=== PATIENT | female | born 2000 | race African-American/Black ===

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

== ENCOUNTER 2021-07-22 12:02 | Inpatient (IN) ==
[2021-07-22] MEDS ORDERED: Oxytocin in LR 20 UNITS/1,000 ML BAG IVPB ONE (13:23)
[2021-07-22] MEDS: Lactated Ringers 1000 ml BAG 1,000 ML IV SCH ×2 (13:35→20:42)
[2021-07-22] MEDS ORDERED: Lactated Ringers 1000 ml BAG 1,000 ML IV ONE ×2 (14:13→18:36)
[2021-07-22] MEDS ORDERED: Buffered Lidocaine 1% SYRIN 1 ml INTRADERM ONE (14:13)
[2021-07-22 14:35] LABS: ABS Basophils 0.1 10^3/ul (0-0.2); ABS Eosinophils 0.1 10^3/ul (0-0.6); ABS Monocytes 1.5 10^3/ul (0-0.8); ABS Neutrophils 9.8 10^3/ul (1.5-7.7); Hematocrit 37 % (35-47); Hemoglobin 12.2 g/dL (12.0-16.0); Mean Corpuscular HGB Conc 33 g/dL (31-36); Mean Corpuscular Hemoglobin 28 pg (27-31); Mean Corpuscular Volume 84 fL (80-97); Mean Platelet Volume 9.5 fL (7.4-10.4); Platelet Count 241 10^3/uL (150-450); Red Blood Count 4.39 10^6 /uL (3.70-4.87); Red Cell Distribution Width 19 % (10-15); White Blood Count 13.5 10^3/uL (3.5-10.8)
[2021-07-22] MEDS ORDERED: Oxytocin in LR 20 UNITS/1,000 ML BAG IVPB SCH (15:00)
[2021-07-22 15:16] LABS: Urine Benzodiazepine Screen None Detected (None Detect); Urine Cannabinoids Screen None Detected (None Detect); Urine Opiates Screen None Detected (None Detect)
[2021-07-22 15:26] LABS: Rapid COVID-19 Molecular Undetected (Undetected)
[2021-07-22] MEDS ORDERED: OBEPIDURAL 250 ML EPIDURAL ONE (17:37)
[2021-07-22] MEDS ORDERED: Phenylephrine 40 mcg/mL 10mL (400mcg) SYRINGE IV PUSH PRN ×2 (18:36)
[2021-07-22] MEDS ORDERED: Lactated Ringers 1000 ml BAG 500 ML IV PRN ×2 (18:36)
[2021-07-22] MEDS ORDERED: Sodium Citrate/Citric Acid LIQ 15 ML UDC PO PRN (18:36)
[2021-07-22] MEDS ORDERED: OBEPIDURAL 250 ML EPIDURAL SCH (19:00)
[2021-07-22] MEDS ORDERED: Lactated Ringers 1000 ml BAG 1,000 ML IV SCH (19:00)
[2021-07-22 19:01] LABS: Urine Appearance Cloudy; Urine Bilirubin Negative (Negative); Urine Blood Negative (Negative); Urine Color Yellow; Urine Glucose Negative (Negative); Urine Ketones 1+ (Negative); Urine Nitrite Negative (Negative); Urine Protein Negative (Negative); Urine Specific Gravity 1.016 (1.002-1.030); Urine Urobilinogen Negative (Negative)
[2021-07-23] MEDS ORDERED: Witch Hazel PAD JAR TOPICAL PRN (01:11)
[2021-07-23] MEDS ORDERED: Dibucaine 1% OINT 28.35 GM TUBE PR PRN (01:11)
[2021-07-23] MEDS ORDERED: Glycerin ADULT 2.4 gm SUPP PR PRN (01:11)
[2021-07-23] MEDS ORDERED: Lidocaine 1% VIAL 10 MG/ML VIAL ONE (03:40)
[2021-07-23] MEDS ORDERED: Tetan/Diph/Pertus SYR(Tdap) 0.5 ML SYR(BOOSTRIX) use SYR contains LATEX IM ONE (09:00)
[2021-07-24 06:30] LABS: ABS Basophils 0.1 10^3/ul (0-0.2); ABS Eosinophils 0.2 10^3/ul (0-0.6); ABS Lymphocytes 2.7 10^3/ul (1.0-4.8); ABS Monocytes 1.5 10^3/ul (0-0.8); ABS Neutrophils 11.7 10^3/ul (1.5-7.7); Eosinophil % 1.4 %; Hematocrit 30 % (35-47); Hemoglobin 9.7 g/dL (12.0-16.0); Lymphocyte % 16.8 %; Mean Corpuscular HGB Conc 32 g/dL (31-36); Mean Corpuscular Hemoglobin 27 pg (27-31); Mean Corpuscular Volume 84 fL (80-97); Mean Platelet Volume 8.6 fL (7.4-10.4); Nucleated Red Blood Cells % 0.1; Platelet Count 229 10^3/uL (150-450); Red Blood Count 3.56 10^6 /uL (3.70-4.87); Red Cell Distribution Width 19 % (10-15); White Blood Count 16.1 10^3/uL (3.5-10.8)
[2021-07-25 11:52] VITALS: BP 104/51
== END 2021-07-25 18:22 | disposition home or self-care (01) | DRG 560 ==
LOC: MCHOBOUT 12:02 → MCHOB 13:21
PROVIDERS: ADMIT Midwife; ATTEND Midwife

== ENCOUNTER 2023-11-10 10:35 | Inpatient (IN) ==
[2023-11-10] MEDS ORDERED: Lidocaine 1% VIAL 10 MG/ML 30 ML VIAL INJ PRN (10:52)
[2023-11-10] MEDS: Lactated Ringers 1000 ml BAG 1,000 ML IV ONE (11:07)
[2023-11-10 11:17] LABS: ABS Basophils 0.1 10^3/uL (0.0-0.1); ABS Eosinophils 0.1 10^3/uL (0.0-0.5); ABS Lymphocytes 2.5 10^3/uL (1.0-4.8); ABS Monocytes 1.2 10^3/uL (0.0-0.9); ABS Neutrophils 7.7 10^3/uL (1.5-7.6); ABS Nucleated RBC 0.01 10^3/ul; Eosinophil % 0.9 %; Hematocrit 34.9 % (35-45); Hemoglobin 11.2 g/dL (11.5-14.3); Lymphocyte % 21.6 %; Mean Corpuscular Hemoglobin 25.5 pg (27-33); Mean Corpuscular Hgb Conc 32.1 g/dL (31-36); Mean Corpuscular Volume 79.5 fL (80-97); Mean Platelet Volume 8.7 fL (7.5-11.2); Nucleated Red Blood Cells % 0.1 %/100WBC (0.0-0.8); Platelet Count 275 10^3/uL (150-450); Red Blood Count 4.39 10^6/uL (3.63-4.92); Red Cell Distribution Width 18.3 % (12-17); White Blood Count 11.7 10^3/uL (3.8-11.8)
[2023-11-10] MEDS: Penicillin G Potassium IV 5,000,000 UNITS in NS 0.9% 100 ml BAG 100 ML IVPB ONE (11:31)
[2023-11-10] MEDS ORDERED: Witch Hazel PAD JAR TOPICAL PRN (12:11)
[2023-11-10] MEDS ORDERED: Glycerin ADULT 2.4 gm SUPP PR PRN (12:11)
[2023-11-10] MEDS: OBEPIDURAL (200 ML) 0 ML EPIDURAL ONE (13:09)
[2023-11-10] MEDS: Lidocaine 1.5% EPI 1:200,000 30 ML SDV ONE (13:09)
[2023-11-10] MEDS: Buffered Lidocaine 1% SYRIN 1 ml INTRADERM ONE (13:09)
[2023-11-10] MEDS: Lactated Ringers 1000 ml BAG 1,000 ML IV SCH (18:20)
[2023-11-10] MEDS: Oxytocin in LR 0 MILLI.UNIT/0 ML BAG IV ONE (18:21)
[2023-11-10 21:00] LABS: Urine Benzodiazepine Screen None Detected (None Detect); Urine Cannabinoids Screen None Detected (None Detect); Urine Opiates Screen None Detected (None Detect)
[2023-11-11 07:37] LABS: ABS Basophils 0.1 10^3/uL (0.0-0.1); ABS Eosinophils 0.2 10^3/uL (0.0-0.5); ABS Lymphocytes 2.5 10^3/uL (1.0-4.8); ABS Monocytes 1.3 10^3/uL (0.0-0.9); ABS Neutrophils 10.2 10^3/uL (1.5-7.6); ABS Nucleated RBC 0.01 10^3/ul; Eosinophil % 1.4 %; Hematocrit 29.4 % (35-45); Hemoglobin 9.6 g/dL (11.5-14.3); Lymphocyte % 17.6 %; Mean Corpuscular Hemoglobin 26.1 pg (27-33); Mean Corpuscular Hgb Conc 32.6 g/dL (31-36); Mean Corpuscular Volume 80.1 fL (80-97); Mean Platelet Volume 8.9 fL (7.5-11.2); Nucleated Red Blood Cells % 0.1 %/100WBC (0.0-0.8); Platelet Count 219 10^3/uL (150-450); Red Blood Count 3.67 10^6/uL (3.63-4.92); Red Cell Distribution Width 18.7 % (12-17); White Blood Count 14.3 10^3/uL (3.8-11.8)
[2023-11-12 08:18] VITALS: BP 97/42
[2023-11-12] MEDS: Dibucaine 1% OINT 28.35 GM TUBE PR PRN (08:23)
== END 2023-11-12 10:38 | disposition home or self-care (01) | DRG 560 ==
LOC: MCHOBOUT 10:35 → MCHOB 10:50
PROVIDERS: ADMIT Midwife; ATTEND Midwife